=== PATIENT | male | born 1985 | race Two or more races ===

== ENCOUNTER 2024-07-10 16:07 | Emergency (ER) | payer BC, SELFPAY ==
[2024-07-10 16:16] VITALS: BP 161/103; PULSE 92; RESP 20; TEMP 36.7; O2SAT 92; BMI 33.3
--- NOTE | 2024-07-10 16:36 | PD.EDANIML ---
ED Animal Bite RME/HPI General Chief Complaint: Animal Bite Stated Complaint: Dog bite left upper leg Time Seen by Provider: 07/10/24 16:18 Arrival date/time: 07/10/24 16:07 RME / HPI RME / HPI narrative: 38-year-old male presents to the ED with complaint of dog bite to his left upper leg. Patient states that he was bitten by a stray dog while he was out for a run. He was bit on the back of his left lower extremity. He were to urgent care and they told him to come here. Related Data Allergies Allergy/AdvReac Type Severity Reaction Status Date / Time No Known Allergies Allergy Verified 07/10/24 16:12 Review of Systems Review of Systems Systems Reviewed: All systems reviewed, normal except as documented ED Exam Narrative Physical exam: Constitutional: no acute distress, age appropriate, non-toxic Eyes: conjunctivae w/o pallor, EOMI HENT: normocephalic, atraumatic. Respiratory Effort: no stridor, effort normal, no tachypnea Skin: warm, dry; on the left posterior leg just proximal to the knee, there is a 1 cm puncture. No active bleeding. Neurology: alert, oriented X 4. Normal gait Psychology: cooperative, normal mood Course Quality Measures none Orders Category Date Time Status Amoxicillin/Pot Clav 875 [Augmentin 875] Med 07/10/24 16:30 Discontinued 1 tab PO X1 ONE Rabies Immune Globulin/Thimer [Kedrab Inj] Med 07/10/24 16:46 Discontinued 1,500 iu IM X1 ONE Rabies Immune Globulin/Thimer [Kedrab Inj] Med 07/10/24 16:30 Discontinued 300 iu IM X1 ONE Rabies Vaccine (Pcec)/Pf [Rabavert Rabies Vacc w/ Med 07/10/24 16:30 Discontinued Diluent] 2.5 unit IM .ONCE ONE Tet,Diphth,Pertuss(Acell)-Tdap [Boostrix Vacc] Med 07/10/24 16:30 Discontinued 0.5 ml IMI .ONCE ONE Vital Signs Vital signs: Vital Signs Temperature 98.1 F 07/10/24 16:16 Pulse Rate 92 07/10/24 16:16 Respiratory Rate 20 07/10/24 16:16 Blood Pressure 161/103 H 07/10/24 16:16 Pulse Oximetry (%) 92 L 07/10/24 16:16 Oxygen Delivery Method Room Air 07/10/24 16:16 Animal Bite MDM Narrative MDM Narrative:: Patient presented for dog bite. As the dog is not known to the patient, he will be given rabies vaccine. Tdap also updated. No evidence of fractures or retained foreign body. He was prescribed Augmentin by urgent care. Stable for outpatient management. Strict return to ED precautions given. Patient data External records reviewed:: [facility] previous records Clinical information provided by:: patient Social determinants that could affect healthcare access:: none Patient has the following chronic illnesses:: None How is presenting disease/condition affected by chronic disease/condition?: no chronic disease Evaluation data The following diagnostics were reviewed and interpreted by me:: other (specify) Lab and/or radiology exams considered but not ordered:: Labs and imaging considered but not indicated Interpretation Summary: N/A Medications / Prescriptions Medications or Prescriptions considered but not ordered:: N/A Medication administrations:: Medication Administration History Discontinued Medications Amoxicillin/Clavulanate Potassium (Amoxicillin/Pot Clav 875 Tablet) 1 tab PO X1 ONE Stop: 07/10/24 16:31 Last Admin: 07/10/24 16:58 Dose: Not Given Documented By: LARA Non-Admin Reason: Cancelled by Provider Diphtheria/Tetanus/Acell Pertussis (Diphth,Pertuss(Acell),Tet Vac 0.5 Ml Syr) 0.5 ml IMi .ONCE ONE Stop: 07/10/24 16:31 Last Admin: 07/10/24 16:52 Dose: 0.5 ml Documented By: LARA Rabies Immune Globulin (Rabies Imm Glob (Human) 150 Iu/Ml Vial 2ml) 300 iu IM X1 ONE Stop: 07/10/24 16:31 Last Admin: 07/10/24 16:57 Dose: 300 iu Documented By: LARA Rabies Immune Globulin (Rabies Imm Glob (Human) 150 Iu/Ml Vial 2ml) 1,500 iu IM X1 ONE Stop: 07/10/24 16:47 Last Admin: 07/10/24 16:58 Dose: 1,500 iu Documented By: LARA Rabies Vaccine Chick Embryo Cell (Rabies Vaccine (Pcec)/Pf 2.5 Unit/Ml Vial) 2.5 unit IM .ONCE ONE Stop: 07/10/24 16:31 Last Admin: 07/10/24 16:54 Dose: 2.5 unit Documented By: KF See above Consultations Consultation(s) initiated? (list below): No Diagnosis Differential diagnosis animal bite: bite by animal, cat bite, dog bite and rabies contact Most likely diagnosis given after review of the tests above:: Dog bite Admission Indicated Admission indicated?: not indicated Admission Request Was there a request for admission?: No Disposition Plan Disposition Plan: Discharge Discharge Attestation Discharge Attestation: The patient and all family members were given an opportunity to ask questions and understood the discharge instructions. Discharge instructions specifically effects, indications for sooner follow up or return to the emergency department, and the expected course of current diagnosis. Patient condition: Stable Discharge Plan Plan Patient Disposition: HOME (Self Care) Problem List Clinical Impression: Dog bite Patient/Caregiver Discharge Instructions Education Materials: ED Dog Bite Additional Instructions: You need to have the remaining doses in the rabies vaccine series. Today is day 0, you need to have doses on day 3, 7, and 14. This would be 07/13, 07/17, and 3/. Return to the nearest ED for new or worsening symptoms. Print Language: Arabic Stand Alone Forms: Christa Award Info., Patient Portal Info Letter
[2024-07-10] MEDS: DIPHTH,PERTUSS(ACELL),TET VAC 0.5 ML SYR IMi (16:52)
[2024-07-10] MEDS: RABIES VACCINE (PCEC)/PF 2.5 UNIT/ML VIAL IM (16:54)
[2024-07-10] MEDS: RABIES IMM GLOB (HUMAN) 150 IU/ML VIAL 2ML 300 IU IM (16:57)
[2024-07-10] MEDS: RABIES IMM GLOB (HUMAN) 150 IU/ML VIAL 2ML 1500 IU IM (16:58)
== END 2024-07-10 18:04 | disposition home or self-care (01) ==
LOC: SERX 17:34
PROVIDERS: Emergency Provider Emergency Medicine
DX: S71.152A Open bite, left thigh, initial encounter (principal); W54.0XXA Bitten by dog, initial encounter; Z23 Encounter for immunization
CPT/HCPCS: 90375; 90471; 90675; 90715; 99282; 90377

== ENCOUNTER 2024-07-13 14:14 | Emergency (ER) | payer BC, SELFPAY ==
[2024-07-13 14:15] VITALS: BMI 32.5
[2024-07-13 14:38] VITALS: BP 143/87; PULSE 81; RESP 18; TEMP 36.4; O2SAT 97
--- NOTE | 2024-07-13 15:04 | EDNOTE_ITS ---
ED Recheck Abnl Lab Rx-RME/HPI General Chief Complaint: Recheck/Abnormal Lab/Rx Stated Complaint: 2ND RABIES VACCINE Time Seen by Provider: 07/13/24 14:35 Source: patient Arrival date/time: 07/13/24 14:14 This is a 38-year-old male who presents to the emergency department and requesting for a rabies vaccine. He reports he is supposed to get the rabies vaccine series and is on the second dose. Patient has no other complaints. Mode of arrival: ambulatory Limitations: no limitations Related Data Allergies Allergy/AdvReac Type Severity Reaction Status Date / Time No Known Allergies Allergy Verified 07/10/24 16:12 Review of Systems Review of Systems Systems Reviewed: All systems reviewed, normal except as documented Narrative Review of Systems: Gen: No fever, no chills, no weight loss EYES: No discharge, no visual changes, no pain HEENT: No ear pain, no congestion, no sore throat PULM: No shortness of breath, no cough, no congestion CV: No chest pain, no dyspnea on exertion, no palpitations GI: No nausea, no vomiting, no diarrhea, no pain, no constipation : No frequency, no urgency, no dysuria Musc/skel: No joint pain, no back pain Skin: No rash Psyc: No hallucinations, no depression Heme/Lymph: No easy bleeding or bruising tendencies Neuro: No weakness, no headache ED Exam General Limitations: Present no limitations General appearance: Present alert and in no apparent distress Head Head exam: Present atraumatic Eye Eye exam: Present normal appearance, PERRL and EOMI ENT ENT exam: Present normal exam, normal oropharynx and mucous membranes moist Neck Neck exam: Present normal inspection, full ROM and trachea midline Chest Chest inspection: Present normal inspection and symmetric chest wall rise Respiratory Respiratory exam: Present normal lung sounds bilaterally Cardiovascular Cardiovascular exam: Present regular rate, normal rhythm and normal heart sounds Abdominal Exam Abdominal exam: Present soft and normal bowel sounds Extremities Exam Extremities exam: Present normal inspection and full ROM Back Exam Back exam: Present normal inspection and full ROM Neurological Exam Neurological exam: Present alert, oriented X3 and CN II-XII intact Psychiatric Psychiatric exam: Present normal affect and normal mood Skin Skin exam: Present warm, dry, intact and normal color Course Quality Measures none Orders Category Date Time Status Rabies Vaccine (Pcec)/Pf [Rabavert Rabies Vacc w/ Med 07/13/24 14:56 Discontinued Diluent] 2.5 unit IM .ONCE ONE Vital Signs Vital signs: Vital Signs Temperature 97.5 F 07/13/24 14:38 Pulse Rate 81 07/13/24 14:38 Respiratory Rate 18 07/13/24 14:38 Blood Pressure 143/87 H 07/13/24 14:38 Pulse Oximetry (%) 97 07/13/24 14:38 Oxygen Delivery Method Room Air 07/13/24 14:38 Recheck / Abnormal Lab / Rx MDM Narrative MDM Narrative:: Patient requiring second dose rabies series Administered with no complications. Advised to return on day advised for third dose. Patient data External records reviewed:: [facility] previous records Clinical information provided by:: patient Social determinants that could affect healthcare access:: none Patient has the following chronic illnesses:: None How is presenting disease/condition affected by chronic disease/condition?: no chronic disease Evaluation data The following diagnostics were reviewed and interpreted by me:: other (specify) Lab and/or radiology exams considered but not ordered:: None Interpretation Summary: Not applicable Medications / Prescriptions Medications or Prescriptions considered but not ordered:: no Medication administrations:: Medication Administration History Discontinued Medications Rabies Vaccine Chick Embryo Cell (Rabies Vaccine (Pcec)/Pf 2.5 Unit/Ml Vial) 2.5 unit IM .ONCE ONE Stop: 07/13/24 14:57 Last Admin: 07/13/24 15:07 Dose: 2.5 unit Documented By: All medications administered and effective Consultations Consultation(s) initiated? (list below): No Diagnosis Recheck Differential Diagnosis: encounter for medication refill, encounter for wound recheck, encounter for recheck of burn, warfarin-induced coagulopathy and other (Encounter for vaccination) Most likely diagnosis given after review of the tests above:: Encounter for rabies vaccination dose #2 Admission Indicated Admission indicated?: not indicated Admission Request Was there a request for admission?: No Disposition Plan Disposition Plan: Discharge Discharge Attestation Discharge Attestation: The patient and all family members were given an opportunity to ask questions and understood the discharge instructions. Discharge instructions specifically effects, indications for sooner follow up or return to the emergency department, and the expected course of current diagnosis. Patient condition: Stable Discharge Plan Plan Patient Disposition: HOME (Self Care) Patient condition on transfer: Stable Problem List Clinical Impression: Dog bite, Encounter for administration of vaccine Patient/Caregiver Discharge Instructions Discharge Activity: wear oxygen at all times Education Materials: RabAvert 25units Powder for Injection, ED Dog Bite Additional Instructions: You received your second dose of rabies vaccine. These follow the sequence until completed. Print Language: Malay Stand Alone Forms: Christa Award Info., Patient Portal Info Letter PA/GOVERNMENT RELATIONS ANALYST Supervising Physician PA/GOVERNMENT RELATIONS ANALYST Supervising Physician: Dr Reveles
[2024-07-13] MEDS: RABIES VACCINE (PCEC)/PF 2.5 UNIT/ML VIAL IM (15:07)
== END 2024-07-13 15:15 | disposition home or self-care (01) ==
PROVIDERS: Emergency Provider Emergency Medicine
DX: Z20.3 Contact with and (suspected) exposure to rabies (principal); Z23 Encounter for immunization
CPT/HCPCS: 90675; 99282

== ENCOUNTER 2024-07-17 21:20 | Emergency (ER) | payer BC, SELFPAY ==
[2024-07-17 21:20] VITALS: BMI 31.7
[2024-07-17 21:34] VITALS: BP 135/89; PULSE 72; RESP 18; TEMP 36.6; O2SAT 96
--- NOTE | 2024-07-17 21:45 | PD.EDRECHK ---
ED Recheck Abnl Lab Rx-RME/HPI General Chief Complaint: Wound Recheck / Suture Removal Stated Complaint: 3rd Rabies Time Seen by Provider: 07/17/24 21:25 Arrival date/time: 07/17/24 21:20 RME / HPI RME / HPI narrative: Pt presents needed rabies vaccine. No other complaints. Related Data Allergies Allergy/AdvReac Type Severity Reaction Status Date / Time No Known Allergies Allergy Verified 07/10/24 16:12 Review of Systems Review of Systems Systems Reviewed: All systems reviewed, normal except as documented ED Exam Narrative Physical exam: Constitutional: no acute distress, age appropriate, non-toxic Eyes: conjunctivae w/o pallor, EOMI HENT: normocephalic, atraumatic. Respiratory Effort: no stridor, effort normal, no tachypnea Skin: warm, dry; No rash Neurology: alert, oriented X 4. Normal gait Psychology: cooperative, normal mood Course Quality Measures none Orders Category Date Time Status Rabies Vaccine (Pcec)/Pf [Rabavert Rabies Vacc w/ Med 07/17/24 21:39 Discontinued Diluent] 2.5 unit IM .ONCE ONE Vital Signs Vital signs: Vital Signs Temperature 97.9 F 07/17/24 21:34 Pulse Rate 72 07/17/24 21:34 Respiratory Rate 18 07/17/24 21:34 Blood Pressure 135/89 H 07/17/24 21:34 Pulse Oximetry (%) 96 07/17/24 21:34 Oxygen Delivery Method Room Air 07/17/24 21:34 Recheck / Abnormal Lab / Rx Patient data External records reviewed:: [facility] previous records Clinical information provided by:: patient Social determinants that could affect healthcare access:: none Patient has the following chronic illnesses:: None How is presenting disease/condition affected by chronic disease/condition?: no chronic disease Evaluation data The following diagnostics were reviewed and interpreted by me:: other (specify) (None) Lab and/or radiology exams considered but not ordered:: None Interpretation Summary: N/A Medications / Prescriptions Medications or Prescriptions considered but not ordered:: N/A Medication administrations:: Medication Administration History Discontinued Medications Rabies Vaccine Chick Embryo Cell (Rabies Vaccine (Pcec)/Pf 2.5 Unit/Ml Vial) 2.5 unit IM .ONCE ONE Stop: 07/17/24 21:40 See above Consultations Consultation(s) initiated? (list below): No Diagnosis Recheck Differential Diagnosis: encounter for medication refill, encounter for wound recheck and encounter for recheck of burn Most likely diagnosis given after review of the tests above:: Vaccine Admission Indicated Admission indicated?: not indicated Admission Request Was there a request for admission?: No Disposition Plan Disposition Plan: Discharge Discharge Attestation Discharge Attestation: The patient and all family members were given an opportunity to ask questions and understood the discharge instructions. Discharge instructions specifically effects, indications for sooner follow up or return to the emergency department, and the expected course of current diagnosis. Patient condition: Stable Discharge Plan Plan Patient Disposition: HOME (Self Care) Problem List Clinical Impression: Encounter for administration of vaccine Patient/Caregiver Discharge Instructions Print Language: Azerbaijani Stand Alone Forms: Christa Award Info., Patient Portal Info Letter
[2024-07-17] MEDS: RABIES VACCINE (PCEC)/PF 2.5 UNIT/ML VIAL IM (21:58)
== END 2024-07-17 22:10 | disposition home or self-care (01) ==
LOC: SERX 22:07
PROVIDERS: Emergency Provider Emergency Medicine
DX: Z23 Encounter for immunization (principal)
CPT/HCPCS: 90471; 90675; 99282

== ENCOUNTER 2024-07-25 15:34 | Emergency (ER) | payer BC, SELFPAY ==
--- NOTE | 2024-07-25 16:09 | PD.EDANIML ---
ED Animal Bite RME/HPI General Chief Complaint: Animal Bite Stated Complaint: RABIES SHOT; LAST DOSE Time Seen by Provider: 07/25/24 15:37 Source: patient Arrival date/time: 07/25/24 15:34 38-year-old male with no known medical history presents to the emergency room to get his last rabies vaccination. Mode of arrival: ambulatory Limitations: no limitations Related Data Allergies Allergy/AdvReac Type Severity Reaction Status Date / Time No Known Allergies Allergy Verified 07/25/24 15:37 Review of Systems Review of Systems Systems Reviewed: All systems reviewed, normal except as documented Constitutional Constitutional: Reports system reviewed and no additional complaints, except as documented, Denies fatigue, Denies fever(s), Denies headache(s) and Denies weakness Eyes Eyes: Reports system reviewed and no additional complaints, except as documented, Denies blurry vision and Denies change in vision ENT Ears, Nose, Mouth, and Throat: Reports system reviewed and no additional complaints, except as documented, Denies otalgia, Denies headache(s), Denies nasal congestion, Denies throat swelling and Denies vertigo Cardiovascular Cardiovascular: Reports system reviewed and no additional complaints, except as documented, Denies chest pain, Denies dyspnea and Denies dyspnea on exertion Respiratory Respiratory: Reports system reviewed and no additional complaints, except as documented, Denies chest congestion, Denies cough, Denies dyspnea, Denies dyspnea on exertion and Denies wheezing Gastrointestinal Gastrointestinal: Reports system reviewed and no additional complaints, except as documented, Denies abdominal pain, Denies cramping, Denies nausea and Denies vomiting Genitourinary Genitourinary: Reports system reviewed and no additional complaints, except as documented, Denies dysuria and Denies hematuria Musculoskeletal Musculoskeletal: Reports system reviewed and no additional complaints, except as documented and Denies back pain Integumentary/Breasts Skin/Breast: Reports system reviewed and no additional complaints, except as documented and Denies wounds Neurologic Neurologic: Reports system reviewed and no additional complaints, except as documented, Denies confusion, Denies headache(s), Denies lack of coordination, Denies vertigo and Denies weakness Psychiatric Psychiatric: Reports system reviewed and no additional complaints, except as documented, Denies anxiety, Denies confusion, Denies depression, Denies paranoia, Denies suicidal ideation and Denies tactile hallucinations Endocrine Endocrine: Reports system reviewed and no additional complaints, except as documented and Denies fatigue Hematologic/Lymphatic Hematologic/Lymphatic: Reports system reviewed and no additional complaints, except as documented and Denies lymphadenopathy Allergic/Immunologic Allergic/Immunologic: Reports system reviewed and no additional complaints, except as documented, Denies throat swelling, Denies urticaria and Denies wheezing Past Medical History Social History SMOKING STATUS: Never smoker ED Exam General Limitations: Present no limitations General appearance: Present alert and in no apparent distress Head Head exam: Present atraumatic Eye Eye exam: Present normal appearance, PERRL and EOMI ENT ENT exam: Present normal exam, normal oropharynx and mucous membranes moist Neck Neck exam: Present normal inspection, full ROM and trachea midline Chest Chest inspection: Present normal inspection and symmetric chest wall rise Respiratory Respiratory exam: Present normal lung sounds bilaterally Cardiovascular Cardiovascular exam: Present regular rate, normal rhythm and normal heart sounds Abdominal Exam Abdominal exam: Present soft and normal bowel sounds Extremities Exam Extremities exam: Present normal inspection and full ROM Back Exam Back exam: Present normal inspection and full ROM Neurological Exam Neurological exam: Present alert, oriented X3 and CN II-XII intact Psychiatric Psychiatric exam: Present normal affect and normal mood Skin Skin exam: Present warm, dry, intact and normal color Course Quality Measures none Orders Category Date Time Status Rabies Vaccine (Pcec)/Pf [Rabavert Rabies Vacc w/ Med 07/25/24 16:08 Discontinued Diluent] 2.5 unit IM .ONCE ONE Animal Bite MDM Narrative MDM Narrative:: 38-year-old male with no known medical history presents to the emergency room to get his last rabies vaccination. Patient is hemodynamically stable and in no apparent distress. Patient has no other complaints or systems and has not had any rabies symptoms or signs of infection. Patient already received his first 2 doses of the vaccine and today is his final vaccine to date. Vaccine was given with no complications patient was discharged and educated to follow-up with primary care provider and return to emergency room for any evidence of worsening signs or symptoms Patient data External records reviewed:: [facility] previous records Clinical information provided by:: patient Social determinants that could affect healthcare access:: none Patient has the following chronic illnesses:: No chronic illness How is presenting disease/condition affected by chronic disease/condition?: no chronic disease Evaluation data The following diagnostics were reviewed and interpreted by me:: lab results and radiology exam(s) Lab and/or radiology exams considered but not ordered:: Labs and radiology exams considered and ordered Interpretation Summary: N/A Medications / Prescriptions Medications or Prescriptions considered but not ordered:: Medication given Medication administrations:: Medication Administration History Discontinued Medications Rabies Vaccine Chick Embryo Cell (Rabies Vaccine (Pcec)/Pf 2.5 Unit/Ml Vial) 2.5 unit IM .ONCE ONE Stop: 07/25/24 16:09 Medication given Consultations Consultation(s) initiated? (list below): No Diagnosis Differential diagnosis animal bite: bite by animal, cat bite, dog bite, rabies contact and other (Encounter for administration of vaccine) Most likely diagnosis given after review of the tests above:: Encounter for administration of vaccine Admission Indicated Admission indicated?: not indicated Admission Request Was there a request for admission?: No Disposition Plan Disposition Plan: Discharge Discharge Attestation Discharge Attestation: The patient and all family members were given an opportunity to ask questions and understood the discharge instructions. Discharge instructions specifically effects, indications for sooner follow up or return to the emergency department, and the expected course of current diagnosis. Patient condition: Stable Discharge Plan Plan Patient Disposition: HOME (Self Care) Disposition Comment: Stable Problem List Clinical Impression: Encounter for administration of vaccine Patient/Caregiver Discharge Instructions Education Materials: What Vaccines Should You and Your Family Have Additional Instructions: Please follow-up with your primary care provider in the next 24 to 40 hours For any evidence of worsening signs or symptoms return to the emergency room immediately Print Language: Telugu Stand Alone Forms: Christa Award Info., Patient Portal Info Letter PA/TA Supervising Physician ROGER/TA Supervising Physician: Dr. Browne
[2024-07-25] MEDS: RABIES VACCINE (PCEC)/PF 2.5 UNIT/ML VIAL IM (17:00)
== END 2024-07-25 17:46 | disposition home or self-care (01) ==
LOC: SERX 16:38
PROVIDERS: Emergency Provider Emergency Medicine
DX: Z20.3 Contact with and (suspected) exposure to rabies (principal); Z23 Encounter for immunization
CPT/HCPCS: 90675; 99281